=== PATIENT | female | born 1985 | race Caucasian/White ===

== ENCOUNTER 2018-09-02 22:51 | Emergency (ER) | payer MEDICAID ==
[~2018-09-02] VITALS: Ht 175.3 cm; Wt 65.8 kg
--- NOTE | 2018-09-02 23:10 | NUR ---
Pt bib self accompanied with relative. Patient A/Ox4 and is able to verbalize complaints. Pt c/o right shoulder pain that has been worsening for the last week since she last saw chiropractor. Patient has LROM in right shoulder, and has been affecting ADL's. PS 9/10.
[2018-09-02] MEDS ORDERED: HYDROMORPHONE 1 MG/1 ML DISP.SYRIN IM ONE (23:30)
[2018-09-02] MEDS ORDERED: ONDANSETRON 4 MG/2 ML VIAL IM ONE (23:30)
[2018-09-02] MEDS ORDERED: predniSONE 20 MG TABLET PO ONE (23:30)
[2018-09-02] MEDS ORDERED: ONDANSETRON 4 MG/2 ML VIAL ONE (23:34)
[2018-09-02] MEDS ORDERED: HYDROMORPHONE 1 MG/1 ML DISP.SYRIN ONE (23:34)
[2018-09-02] MEDS ORDERED: predniSONE 20 MG TABLET ONE (23:35)
--- NOTE | 2018-09-03 00:18 | NUR ---
Xray at bedside.
--- NOTE | 2018-09-03 01:24 | NUR ---
Patient discharged to home in stable conditon. Written and verbal after care instructions given. Patient verbalizes understanding of instructions. Pt ambulated out of ER in steady gait with family member who will drive home. Pt pain medication effective. All belongings with pt. VSS. NAD noted.
[2018-09-03 01:25] VITALS: BP 122/71
== END 2018-09-03 01:26 | disposition home or self-care (01) ==
LOC: ER 22:51
DX: S29.011A Strain of muscle and tendon of front wall of thorax, initial encounter (principal); G89.29 Other chronic pain; M25.511 Pain in right shoulder; X58.XXXA Exposure to other specified factors, initial encounter; Y93.89 Activity, other specified; Y92.89 Other specified places as the place of occurrence of the external cause; Y99.8 Other external cause status
CPT/HCPCS: 71101; 96372 ×2; 99283; J1170; J2405; J7512; A4663